=== PATIENT | male | born 1965 | race Caucasian/White ===

== ENCOUNTER 2018-06-23 16:17 | Outpatient (CLI) | payer BC ==
[2015-05-15 23:43] VITALS: BP 130/79
--- NOTE | 2018-06-23 19:02 | Diagnostic Imaging Report ---
ELIOT NAVARRO [facility] [address] [facility] [address] [place], [place]. [address] Report Submission Date: Jun 23, 2018 5:19:06 PM CDT Patient Study Name: FRANK ELIAS Date: Jun 23, 2018 4:28:12 PM CDT Modality Type: DX Gender: M Description: CHEST 2VIEW : 61 Institution: [facility] Physician: ELIOT NAVARRO EXAMINATION: CHEST 2VIEW HISTORY: CXR, COUGH AND CONGESTION, PT STATES BRONCHITIS ABOUT A MONTH AGO AND RECENTLY QUIT SMOKING COMPARISON: None FINDINGS: The lungs are emphysematous. On the frontal image, there is a nodular opacity in the right midlung adjacent to the hilum measuring 2.7 cm. Otherwise there is no focal consolidation, pleural effusion, or pneumothorax. The cardiomediastinal silhouette is normal. The visible bony thorax is intact. There are chronic rib fractures bilaterally. IMPRESSION: 1. Emphysema without acute pulmonary process. 2. Right mid lung nodular opacity, which may represent a pulmonary nodule. CT of the chest without contrast is recommended for further evaluation. Electronically signed on Jun 23, 2018 5:19:06 PM CDT by: Jonny MACKAY
== END 2018-06-23 16:19 ==
LOC: RAD 16:17
PROVIDERS: ATTEND Physician Assistant Medical
DX: J43.9 Emphysema, unspecified (principal); R91.8 Other nonspecific abnormal finding of lung field; J06.9 Acute upper respiratory infection, unspecified
CPT/HCPCS: 71046

== ENCOUNTER 2018-07-13 15:03 | Outpatient (CLI) | payer BC ==
[2015-05-15 23:43] VITALS: BP 130/79
--- NOTE | 2018-07-13 18:16 | Diagnostic Imaging Report ---
JEAN MCMILLAN [facility] [address] [facility] [address] [place], [place]. [address] Report Submission Date: July 13, 2018 4:03:51 PM CDT Patient Study Name: FRANK ELIAS Date: July 13, 2018 3:16:41 PM CDT Modality Type: CT\SR Gender: M Description: CT CHEST W/O CONTRAST : 61 Institution: [facility] Physician: JEAN MCMILLAN EXAMINATION: CT CHEST W/O CONTRAST HISTORY: CT CHEST W/O, ABNORMAL X-RAY OF LUNGS WITH SINGLE PULMONARY NODULE. PT STATES LONG-TERM COUGH AND HX OF BRONCHITIS. PT STATES HE QUIT SMOKING X1 MONTH AGO TECHNIQUE: CT of the chest was performed without contrast according to standard protocol. COMPARISON: 06/23/2018 FINDINGS: The aorta and main pulmonary artery are normal in caliber. The aorta and coronary arteries are atherosclerotic. The nodular opacity described on the recent chest radiograph report corresponds to a chronic right 9th rib fracture. There is linear groundglass in the right lower lobe with adjacent bronchiectasis, likely representing scarring. There is advanced emphysema with biapical pleural-parenchymal scarring. There is a nondependent soft tissue lesion in the distal trachea at the nixon measuring 3.2 x 2.1 cm. There is moderate narrowing of the airway. No pleural effusion is identified. There is no evidence of pneumothorax. No suspicious pulmonary nodule is identified. The heart size is normal. No lymphadenopathy is seen. The visible portions of the upper abdominal organs are normal. Bone windows demonstrate no suspicious lytic or blastic lesions. The visible osseous structures are intact. There are multiple chronic bilateral rib fractures. IMPRESSION: 1. The nodular opacity described on the recent chest radiograph report corresponds to a chronic right 9th rib fracture. However, there is a soft tissue lesion in the distal trachea concerning for squamous cell carcinoma, particularly in this patient with a smoking history. Bronchoscopy is recommended for further evaluation. This lesion moderately narrows the airway. 2. Advanced emphysema without suspicious pulmonary nodule identified. Electronically signed on July 13, 2018 4:03:51 PM CDT by: Jonny MACKAY
== END 2018-07-13 15:04 ==
LOC: RAD 15:03
PROVIDERS: ATTEND Family Medicine
DX: M84.48XA Pathological fracture, other site, initial encounter for fracture (principal); J39.8 Other specified diseases of upper respiratory tract; J43.9 Emphysema, unspecified; R91.1 Solitary pulmonary nodule; Z87.891 Personal history of nicotine dependence
CPT/HCPCS: 71250

== ENCOUNTER 2018-08-28 19:25 | Observation (INO) | payer BC ==
[2018-08-28] MEDS ORDERED: 0.9 % SODIUM CHLORIDE 1,000 ML IV ONE (19:30)
[2018-08-28 19:42] LABS: BASOPHILS % 0.5 % (0.0-1.5); NEUTROPHILS # 5.4 # k/uL (1.4-7.7)
[2018-08-28 20:06] LABS: eGFR (Non-African) > 60
[2018-08-28 22:32] VITALS: BMI 16.9
[2018-08-29 06:25] LABS: BASOPHILS % 0.3 % (0.0-1.5); NEUTROPHILS # 7.1 # k/uL (1.4-7.7)
[2018-08-29 06:28] LABS: eGFR (Non-African) > 60
[2018-08-29 07:45] VITALS: BP 117/64
[2018-08-29 08:22] LABS: APPEARANCE,URINE CLEAR (CLEAR); COLOR,URINE YELLOW (YELLOW); OCCULT BLOOD,URINE NEGATIVE (NEGATIVE); UROBILINOGEN URINE 0.2 Eu (0.2-1.0)
[2018-08-29] MEDS ORDERED: SALINE FLUSH 10 ML DISP.SYRIN IV SCH (09:00)
--- NOTE | 2018-08-29 09:58 | History and Physical Report ---
History of Present Illnes - History of Present Illness Reason for Visit: Syncope, squamous cell carcinoma of lung History of Present Illness: This is a 53 year old male recently diagnosed with squamous cell carcinoma of the bronchus/lung. He is getting care for this at . He was NPO all day yesterday for a PET scan (which showed only localized disease), as well as appointments with pulmonology, radiation and medical oncology, and then drove home inthe 90 degree heat on his motorcycle. He stopped and got a couple of tacos and then drank a beer. He was still feeling like he needed to eat something else, and went to [employer] to get a sandwich. As he approached the front of the store, he got very light headed and then encountered a friend. She insisted that he come to the ER for evaluation. He was admitted for fluid resuscitation and also for rule out PR protocol. His cardiac enzymes were negative, and he is very anxious for discharge to home today. He quite smoking on June 17. 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 Alcohol: Heavy (6 pack per day) Drugs: None Lives: Alone Domestic Violence: Negative - Health Maintenance Health Maintenance: Cholesterol Influenza Vaccine: Current for this Influenza Season Pneumonia Vaccine: Yes - Unable to Obtain History Unable to Obtain: No Review of Systems - Review of Systems Constitutional: negative: Fever, Chills Eyes: negative: pain ENT: negative: Ear Pain, Ear Discharge Respiratory: Cough, Dry, Shortness of Breath, SOB with Excertion. negative: Hemoptysis Cardiovascular: Chest Pain Gastrointestinal: negative: Nausea Genitourinary: negative: Dysuria Musculoskeletal: negative: Neck Pain, Shoulder Pain Skin: negative: Rash Neurological: negative: Weakness, Confusion - Medications/Allergies Allergies/Adverse Reactions: Allergies Allergy/AdvReac Type Severity Reaction Status Date / Time Penicillins Allergy Verified 05/15/15 23:44 Current Inpatient Medications: Current Inpatient Medications Sodium Chloride (Normal Saline Flush) 3 ml IV BID MARY Exam - Exam Vital Signs: Vital Signs (72 hours) 08/28/18 08/28/18 08/28/18 22:01 22:10 22:30 Temperature 98.6 F Pulse Rate 71 Pulse Rate [ 71 Pulse ox] Respiratory 20 Rate Blood Pressure 124/72 [Left Arm] O2 Sat by Pulse 96 96 95 Oximetry 08/28/18 08/28/18 08/29/18 23:00 23:27 00:00 Temperature Pulse Rate 71 62 56 L Pulse Rate [ Pulse ox] Respiratory Rate Blood Pressure [Left Arm] O2 Sat by Pulse 97 96 94 Oximetry 08/29/18 08/29/18 08/29/18 00:30 01:00 01:27 Temperature 97.4 F L Pulse Rate 59 L 62 Pulse Rate [ Pulse ox] Respiratory 18 Rate Blood Pressure 98/62 [Left Arm] O2 Sat by Pulse 95 96 96 Oximetry 08/29/18 08/29/18 08/29/18 01:30 02:00 02:01 Temperature Pulse Rate 62 59 L Pulse Rate [ Pulse ox] Respiratory Rate Blood Pressure [Left Arm] O2 Sat by Pulse 95 95 95 Oximetry 08/29/18 08/29/18 08/29/18 02:10 02:30 03:00 Temperature 97.4 F L Pulse Rate 60 62 Pulse Rate [ 71 Pulse ox] Respiratory Rate Blood Pressure 98/62 [Left Arm] O2 Sat by Pulse 95 96 96 Oximetry 08/29/18 08/29/18 08/29/18 03:30 04:00 04:30 Temperature Pulse Rate 62 72 68 Pulse Rate [ Pulse ox] Respiratory Rate Blood Pressure [Left Arm] O2 Sat by Pulse 94 96 97 Oximetry 08/29/18 08/29/18 08/29/18 05:00 05:30 05:53 Temperature Pulse Rate 54 L 60 88 Pulse Rate [ Pulse ox] Respiratory Rate Blood Pressure [Left Arm] O2 Sat by Pulse 96 96 97 Oximetry 08/29/18 08/29/18 08/29/18 05:55 05:56 07:00 Temperature 97.9 F Pulse Rate 68 Pulse Rate [ 60 Pulse ox] Respiratory 20 Rate Blood Pressure 111/64 [Left Arm] O2 Sat by Pulse 97 95 93 Oximetry 08/29/18 08/29/18 07:30 07:44 Temperature 99 F Pulse Rate 68 Pulse Rate [ 66 Pulse ox] Respiratory 16 Rate Blood Pressure 117/64 [Left Arm] O2 Sat by Pulse 93 93 Oximetry General: Alert, Oriented to Person, Oriented to Place, Oriented to Time, Cooperative, No acute distress, Thin HEENT: Atraumatic, PERRLA, EOMI Neck: No: Stridor Lungs: Prolonged Expiration, Decreased Air Movement. No: Respiratory Distress Cardiovascular: Regular rate Murmur: No: Systolic Murmur Abdomen: Normal bowel sounds, Soft Genitourinary: No: Other Male Genitourinary: No: Other Female Genitourinary: No: Other Integumentary: Normal, [place], Warm Extremities: No clubbing, No cyanosis, No edema Neurological: Normal speech, Strength Equal Bilat Psych/Mental Status: Mental status NL - Laboratory Results Laboratory Results: Laboratory Results 08/28/18 08/28/18 08/28/18 19:30 19:40 19:40 WBC 8.90 RBC 4.63 Hgb 15.6 Hct 47.6 MCV 103.0 H MCH 33.6 MCHC 32.7 RDW 12.3 Plt Count 348 Neut % (Auto) 60.7 Lymph % (Auto) 27.7 [place] % (Auto) 8.0 Eos % (Auto) 3.1 Baso % (Auto) 0.5 Neut # (Auto) 5.4 Lymph # (Auto) 2.5 [place] # (Auto) 0.7 Eos # (Auto) 0.3 Baso # (Auto) 0.0 Sodium 139 Potassium 3.8 Chloride 101 Carbon Dioxide 30 BUN 18 Creatinine 0.98 Estimated Creat Clear Est GFR ( Amer) > 60 Est GFR (Non-Af Amer) > 60 Glucose 87 Calcium 9.9 Total Bilirubin 0.4 AST 47 H ALT 16 Alkaline Phosphatase 60 Troponin I < 0.012 L Total Protein 7.1 Albumin 4.5 Urine Color Urine Appearance Urine pH Ur Specific [place] Urine Protein Urine Ketones Urine Occult Blood Urine Nitrite Urine Bilirubin Urine Urobilinogen Ur Leukocyte Esterase Urine Glucose Ethyl Alcohol 11.5 H 08/29/18 08/29/18 08/29/18 00:46 04:00 04:16 WBC 9.30 RBC 4.26 Hgb 14.2 Hct 43.3 MCV 102.0 H MCH 33.5 MCHC 32.9 RDW 12.5 Plt Count 309 Neut % (Auto) 76.4 Lymph % (Auto) 13.6 L [place] % (Auto) 6.7 Eos % (Auto) 3.0 Baso % (Auto) 0.3 Neut # (Auto) 7.1 Lymph # (Auto) 1.3 [place] # (Auto) 0.6 Eos # (Auto) 0.3 Baso # (Auto) 0.0 Sodium Potassium Chloride Carbon Dioxide BUN Creatinine Estimated Creat Clear Est GFR ( Amer) Est GFR (Non-Af Amer) Glucose Calcium Total Bilirubin AST ALT Alkaline Phosphatase Troponin I < 0.012 L Total Protein Albumin Urine Color Yellow Urine Appearance Clear Urine pH 6.0 Ur Specific [place] 1.015 Urine Protein Negative Urine Ketones Negative Urine Occult Blood Negative Urine Nitrite Negative Urine Bilirubin Negative Urine Urobilinogen 0.2 Ur Leukocyte Esterase Negative Urine Glucose Negative Ethyl Alcohol 08/29/18 08/29/18 04:16 08:35 WBC RBC Hgb Hct MCV MCH MCHC RDW Plt Count Neut % (Auto) Lymph % (Auto) [place] % (Auto) Eos % (Auto) Baso % (Auto) Neut # (Auto) Lymph # (Auto) [place] # (Auto) Eos # (Auto) Baso # (Auto) Sodium 138 Potassium 4.1 Chloride 106 Carbon Dioxide 27 BUN 15 Creatinine 0.71 Estimated Creat Clear 94 Est GFR ( Amer) > 60 Est GFR (Non-Af Amer) > 60 Glucose 95 Calcium 9.1 Total Bilirubin 0.5 AST 40 ALT 19 Alkaline Phosphatase 54 Troponin I < 0.012 L Total Protein 5.9 L Albumin 3.7 Urine Color Urine Appearance Urine pH Ur Specific [place] Urine Protein Urine Ketones Urine Occult Blood Urine Nitrite Urine Bilirubin Urine Urobilinogen Ur Leukocyte Esterase Urine Glucose Ethyl Alcohol Assessment/Plan - Assessment/Plan (1) Near syncope Status: Acute Current Visit: Yes Assessment: Much better with hydration, and no evidence of cardiac ischemia Plan: Will d/c to home today I recommended that he follow up with Dr Matias, as he has not seen her for several years. (2) Squamous cell carcinoma of lung, stage I Status: Acute Current Visit: Yes Assessment: Currently undergoing treatment at with plans for radiation and possible surgery. Has already had flexible bronchoscopy for this with removal of some tumor. VTE Assessment - RISK FACTOR SCORE VTE RISK FACTOR SCORES: AGE 40-60 YEARS - RISK VTE LOW RISK: SCORE OF 1 OR LESS (RISK PROXIMAL DVT 0.4%) NO PROPHYLAXIS NEEDED (No anticoagulation needed.)
--- NOTE | 2018-08-29 10:07 | Discharge Summary ---
Discharge Summary - Discharge [facility] Admission Date: 08/28/18 Discharge Date: 08/29/18 Discharge To: Home History of Present Illness: 53 year old male with newly diagnosed squamous cell carinoma of the lung admitted with near syncope. He was admitted over night, and serial troponins were obtained and negative. Condition at Discharge: Stable Consultations this Visit: None Procedures this Visit: None Allergies/Adverse Reactions: Allergies Allergy/AdvReac Type Severity Reaction Status Date / Time Penicillins Allergy Verified 05/15/15 23:44 Patient Problems: Current Active Problems Problem Status Onset Near syncope Acute Squamous cell carcinoma of lung, stage I Acute Discharge Summary: Discharged to home to follow up with radiation oncology, medical oncology and pulmonology.
== END 2018-08-29 10:05 | disposition home or self-care (01) ==
LOC: ED 19:25 → SOUTH 21:50
PROVIDERS: ADMIT Family Medicine; ATTEND Family Medicine
DX: R55 Syncope and collapse (principal); C34.90 Malignant neoplasm of unspecified part of unspecified bronchus or lung
CPT/HCPCS: 36415; 80053; 80320; 81002; 84484; 85025; 99218; G0378; G0480; S1016